=== PATIENT | female | born 1965 | race African-American/Black ===

== ENCOUNTER 2017-09-20 20:30 | Inpatient (IN) | payer OTHER ==
[~2017-09-20] VITALS: Ht 162.6 cm; Wt 122.5 kg
[~2017-09-20 20:30] MED LIST: ADVAIR 250/501 DISK IH; ALBUTEROL17 G1 IH; ARMOUR THYROID30 MG PO; ASPIR 8181 M1 PO; AVELOX400 MG PO; Aspirin E.C. PO; BENAZEPRIL HCL40 MG PO; BENTYL20 MG PO; CIPROFLOXACIN500 M1 PO; CLINDAMYCIN HC300 MG PO; CLONIDINE HCL0.1 MG PO; COMPAZINE10 MG PO; DIOVAN HCT 3201 EAC1 PO; DIOVAN40 MG PO; GABAPENTIN300 MG PO; GLIPIZIDE; GLIPIZIDE10 MG PO; GLIPIZIDE5 MG PO; GLUCOTROL XL5 MG PO; HYDROCHLOROTHIAZIDE PO; INDERIDE 40/1 TABLET PO; KYTRIL1 MG PO; LABETALOL HCL200 MG PO; LEVOTHROID25 MCG PO; LEVOXYL25 MCG PO; LOTENSIN20 MG PO; LOVASTATIN10 MG PO; LOVASTATIN40 MG PO; LYRICA50 MG PO; Levothroid,Synthroid PO; MEDROL; METOCLOPRAMIDE10 MG PO; Milk Of Magnesia,MOM PO; NAPROXEN500 MG PO; NORMODYNE,TRAN200 MG PO; Normodyne,Trandate PO; OXYCODONE HCL10 MG PO; PANTOPRAZOLE SO40 MG PO; PERCOCET 10/1 TABLET PO; PERCOCET 5/31 TABLET PO; PREDNISONE50 MG PO; PROTONIX40 MG PO; PROVENTIL HFA6.7 GM IH; Percocet 5/325,Endoc PO; Protonix PO; Proventil,Ventolin H IH; REGLAN10 M1 PO; REGLAN10 MG PO; ROBITUSSIN AC,T10 ML PO; Reglan PO; Symbicort 160-4.5 mc IH; TYLENOL/CODE1 TABLET PO; VENTOLIN HFA18 GM IH; ZANTAC300 MG PO; ZOFRAN ODT8 MG PO; ZOFRAN4 MG PO; predniSONE PO
[2017-09-20 21:10] LABS: CHLORIDE 83 mEq/L (99-109); HEMATOCRIT 34.7 % (36.0-46.0); MCH 32.5 PG (29.0-34.0); MCV 90.1 FL (83-99); MEAN PLAT.VOLUME 10.8 uM^3 (9.5-12.4); PLATELET COUNT 263 K/uL (156-360); POTASSIUM 3.4 mEq/L (3.7-5.4); RBC DIS.WIDTH-CV 13.4 % (11.8-14.6); RBC DIS.WIDTH-SD 44.2 % (39-53); RED BLOOD COUNT 3.85 M/uL (3.80-5.20); SODIUM 128 mEq/L (136-147); WHITE BLOOD COUNT 23.2 K/uL (4.1-10.2)
[2017-09-20 21:12] LABS: GLUCOSE 147 mg/dL (70-99)
[2017-09-20 21:13] LABS: ANION GAP 28 MEQ/L (2-14)
[2017-09-20 21:16] LABS: GFR ESTIMATE (CALCULATED) 5 mL/min/; UREA NITROGEN (BUN) 91 mg/dL (9-23)
[2017-09-20 21:16] LABS: POINT-OF-CARE METER ID UU13113747; POINT-OF-CARE USER ID 611181311
[2017-09-20 21:24] LABS: TROP-I INTERPRETATION NEGATIVE; TROPONIN-I 0.04 ng/mL (0.0-0.30)
[2017-09-20 21:44] LABS: MAGNESIUM 1.6 mg/dL (1.3-2.7)
[2017-09-20 21:51] LABS: LIPASE 20 U/L (1.0-51.0)
[2017-09-20 22:57] LABS: ERTH.SED.RATE 49 MM/HR (0-20)
[2017-09-20 23:25] LABS: ADD MIUA? YES; BILIRUBIN NEGATIVE; BLOOD MODERATE; COLOR AMBER ((YELLOW)); GLUCOSE (STRIP) NEGATIVE; KETONES 5; LEUKOCYTES LARGE; NITRITE NEGATIVE; PROTEIN (STRIP) 100; SPECIFIC GRAVITY 1.023 (1.000-1.030); UROBILINOGEN 0.2 MG/DL (0.2-1.0)
[2017-09-20 23:43] LABS: BACTERIA 3+ /HPF
[2017-09-20 23:44] LABS: EPITHELIAL CELLS 2+ /HPF; WHITE BLOOD CELLS TNTC /HPF (0-5)
[2017-09-20 23:47] LABS: UCUL ADDED? YES
[2017-09-20 23:48] LABS: CASTS NONE SEEN /LPF; CRYSTALS NONE SEEN; MUCUS NONE SEEN /LPF
[2017-09-21 01:11] LABS: C-REACTIVE PROTEIN > 240.0 MG/L (0-10)
[2017-09-21] MEDS ORDERED: MORPHINE SULFAT15 M1 PO (01:38)
[2017-09-21] MEDS ORDERED: GABAPENTIN300 MG PO (01:39)
[2017-09-21] MEDS ORDERED: PANTOPRAZOLE SO40 MG PO (01:40)
[2017-09-21] MEDS ORDERED: LOTENSIN10 MG PO (01:41)
[2017-09-21] MEDS ORDERED: AMMONIUM LACTA224 GM TP (01:42)
[2017-09-21] MEDS ORDERED: LEVOTHYROXINE25 MCG PO (01:42)
[2017-09-21 02:17] LABS: CHLORIDE 89 mEq/L (99-109); POTASSIUM 3.7 mEq/L (3.7-5.4); SODIUM 129 mEq/L (136-147)
[2017-09-21 02:19] LABS: GLUCOSE 168 mg/dL (70-99)
[2017-09-21 02:20] LABS: ANION GAP 20 MEQ/L (2-14)
[2017-09-21 02:23] LABS: GFR ESTIMATE (CALCULATED) 5 mL/min/
[2017-09-21 02:24] LABS: UREA NITROGEN (BUN) 92 mg/dL (9-23)
[2017-09-21 03:58] LABS: MAGNESIUM 1.4 mg/dL (1.3-2.7)
[2017-09-21 04:25] LABS: TROP-I INTERPRETATION NEGATIVE; TROPONIN-I 0.04 ng/mL (0.0-0.30)
[2017-09-21 04:39] LABS: ALKALINE PHOSPHATASE 115 IU/L (3-129); CREATINE KINASE 2154 IU/L (1-294); DIRECT BILIRUBIN 0.2 mg/dL (0.0-0.3); SAMPLE HEMOLYSIS CHECK 0; SAMPLE ICTERIC CHECK 0; SAMPLE LIPEMIA CHECK 1; TOTAL BILIRUBIN 0.6 MG/DL (0.0-1.0)
[2017-09-21 04:40] VITALS: BP 144/70
[2017-09-21 06:07] LABS: HEMATOCRIT 34.3 % (36.0-46.0); MCH 31.6 PG (29.0-34.0); MCHC 34.4 G/DL (30.0-36.0); MEAN PLAT.VOLUME 10.8 uM^3 (9.5-12.4); PLATELET COUNT 250 K/uL (156-360); RBC DIS.WIDTH-CV 13.5 % (11.8-14.6); RED BLOOD COUNT 3.73 M/uL (3.80-5.20); WHITE BLOOD COUNT 20.8 K/uL (4.1-10.2)
[2017-09-21 07:37] LABS: POINT-OF-CARE METER ID UU13113781
[2017-09-21 07:49] LABS: ANION GAP ND MEQ/L (2-14); CHLORIDE 88 MEQ/L (99-109); GLUCOSE 198 mg/dL (70-99); POTASSIUM 3.7 MEQ/L (3.7-5.4); SAMPLE HEMOLYSIS CHECK 0; SAMPLE ICTERIC CHECK 0; SAMPLE LIPEMIA CHECK 0; SODIUM 130 MEQ/L (136-147); TOTAL CK 2246 IU/L (1-294); UREA NITROGEN (BUN) 91 mg/dL (9-23)
[2017-09-21 07:56] LABS: CREATINE KINASE 2246 IU/L (1-294)
[2017-09-21 08:00] VITALS: BP 121/63
[2017-09-21 08:11] LABS: CK-MB 53.6 ng/mL (0.0-4.9)
[2017-09-21 09:08] LABS: GFR ESTIMATE (CALCULATED) 6 mL/min/
[2017-09-21 11:51] LABS: POINT-OF-CARE METER ID UU13113781
[2017-09-21 11:55] LABS: TROP-I INTERPRETATION NEGATIVE; TROPONIN-I 0.07 ng/mL (0.0-0.30)
[2017-09-21 12:00] VITALS: BP 132/63
[2017-09-21 16:49] VITALS: BP 140/66
[2017-09-21 17:03] LABS: POINT-OF-CARE METER ID UU13113781
[2017-09-21 19:27] VITALS: BP 126/71
[2017-09-21 21:10] LABS: POINT-OF-CARE METER ID UU13113698
[2017-09-22 04:01] VITALS: BP 174/81
[2017-09-22 04:50] LABS: HEMATOCRIT 33.3 % (36.0-46.0); MCH 31.4 PG (29.0-34.0); MCHC 34.5 G/DL (30.0-36.0); MEAN PLAT.VOLUME 10.1 uM^3 (9.5-12.4); PLATELET COUNT 293 K/uL (156-360); RBC DIS.WIDTH-CV 13.5 % (11.8-14.6); RBC DIS.WIDTH-SD 44.7 % (39-53); RED BLOOD COUNT 3.66 M/uL (3.80-5.20); WHITE BLOOD COUNT 17.7 K/uL (4.1-10.2)
[2017-09-22 04:58] LABS: POTASSIUM 3.4 mEq/L (3.7-5.4); SODIUM 135 mEq/L (136-147)
[2017-09-22 05:00] LABS: CHLORIDE 99 mEq/L (99-109); GLUCOSE 248 mg/dL (70-99)
[2017-09-22 05:01] LABS: ANION GAP 14 MEQ/L (2-14)
[2017-09-22 05:04] LABS: GFR ESTIMATE (CALCULATED) 29 mL/min/; UREA NITROGEN (BUN) 69 mg/dL (9-23)
[2017-09-22 08:19] LABS: POINT-OF-CARE METER ID UU14174216; POINT-OF-CARE USER ID NUTSLF44
[2017-09-22 08:39] VITALS: BP 188/86
[2017-09-22 11:56] LABS: POINT-OF-CARE METER ID UU14174216; POINT-OF-CARE USER ID NUTSLF44
[2017-09-22 12:45] VITALS: BP 177/79
[2017-09-22 16:32] LABS: POINT-OF-CARE METER ID UU13113781; POINT-OF-CARE USER ID ENVKC36
[2017-09-22 16:53] VITALS: BP 172/79
[2017-09-22 21:23] LABS: POINT-OF-CARE METER ID UU13113781
[2017-09-23] VITALS (9 sets, daily range): BP systolic 135–218; BP diastolic 84–109
[2017-09-23 06:00] LABS: ANION GAP 12 MEQ/L (2-14); GLUCOSE 245 mg/dL (70-99); SAMPLE HEMOLYSIS CHECK 1; SAMPLE ICTERIC CHECK 0; SAMPLE LIPEMIA CHECK 0; SODIUM 139 MEQ/L (136-147)
[2017-09-23 06:09] LABS: CHLORIDE 101 MEQ/L (99-109); GFR ESTIMATE (CALCULATED) > 59 mL/min/; UREA NITROGEN (BUN) 32 mg/dL (9-23)
[2017-09-23 07:53] LABS: POINT-OF-CARE METER ID UU13113781
[2017-09-23 10:22] LABS: CREATINE KINASE 540 IU/L (1-294)
[2017-09-23 12:12] LABS: POINT-OF-CARE METER ID UU13113698
[2017-09-23 17:19] LABS: POINT-OF-CARE METER ID UU13113781
[2017-09-23 20:50] LABS: POINT-OF-CARE METER ID UU13113781
[2017-09-24 00:01] VITALS: BP 161/82
[2017-09-24 05:06] VITALS: BP 142/76
[2017-09-24 05:30] LABS: HEMATOCRIT 35.2 % (36.0-46.0); MCH 31.3 PG (29.0-34.0); MCHC 34.9 G/DL (30.0-36.0); MCV 89.6 FL (83-99); MEAN PLAT.VOLUME 9.6 uM^3 (9.5-12.4); PLATELET COUNT 293 K/uL (156-360); RBC DIS.WIDTH-CV 13.3 % (11.8-14.6); RBC DIS.WIDTH-SD 43.9 % (39-53); RED BLOOD COUNT 3.93 M/uL (3.80-5.20); WHITE BLOOD COUNT 13.1 K/uL (4.1-10.2)
[2017-09-24 05:50] LABS: ANION GAP 11 MEQ/L (2-14); CHLORIDE 95 MEQ/L (99-109); GFR ESTIMATE (CALCULATED) > 59 mL/min/; GLUCOSE 322 mg/dL (70-99); POTASSIUM 3.6 MEQ/L (3.7-5.4); SAMPLE HEMOLYSIS CHECK 0; SAMPLE ICTERIC CHECK 0; SAMPLE LIPEMIA CHECK 0; SODIUM 138 MEQ/L (136-147); UREA NITROGEN (BUN) 21 mg/dL (9-23)
[2017-09-24 06:24] LABS: ABS NEUTROPHIL COUNT 11.4; ANISOCYTOSIS 1+; EOSINOPHIL ABS CT 0; HYPOCHROMASIA 1+; INSTRUMENT ABS NEUTROPHIL CT 10.3 K/uL; LYMPHOCYTES 7.8 % (15.0-45.0); MICROCYTOSIS 1+; MYELOCYTES 0.9 %; PLAT.SUFFICIENCY ADEQUATE
[2017-09-24 07:32] VITALS: BP 185/87
[2017-09-24 07:33] LABS: POINT-OF-CARE METER ID UU14314088
[2017-09-24 11:41] VITALS: BP 148/90
[2017-09-24 12:12] LABS: POINT-OF-CARE METER ID UU13113781; POINT-OF-CARE USER ID ENVKC36
[2017-09-24 15:12] VITALS: BP 176/82
[2017-09-24 16:49] LABS: POINT-OF-CARE METER ID UU13113781; POINT-OF-CARE USER ID ENVKC36
[2017-09-24 21:00] VITALS: BP 174/90
[2017-09-24 21:00] LABS: POINT-OF-CARE METER ID UU14314088
[2017-09-25 04:19] VITALS: BP 154/78
[2017-09-25 06:07] LABS: HEMATOCRIT 34.9 % (36.0-46.0); MCH 30.4 PG (29.0-34.0); MCHC 33.5 G/DL (30.0-36.0); MCV 90.6 FL (83-99); MEAN PLAT.VOLUME 9.4 uM^3 (9.5-12.4); PLATELET COUNT 253 K/uL (156-360); RBC DIS.WIDTH-CV 13.4 % (11.8-14.6); RED BLOOD COUNT 3.85 M/uL (3.80-5.20); WHITE BLOOD COUNT 17.9 K/uL (4.1-10.2)
[2017-09-25 06:44] LABS: ANION GAP 12 MEQ/L (2-14); CHLORIDE 95 MEQ/L (99-109); GFR ESTIMATE (CALCULATED) > 59 mL/min/; POTASSIUM 3.3 MEQ/L (3.7-5.4); SAMPLE HEMOLYSIS CHECK 0; SAMPLE ICTERIC CHECK 0; SAMPLE LIPEMIA CHECK 0; SODIUM 138 MEQ/L (136-147); UREA NITROGEN (BUN) 19 mg/dL (9-23)
[2017-09-25 06:54] VITALS: BP 151/88
[2017-09-25 06:58] LABS: ATYPICAL LYMPHOCYTE 0.9 %; BAND NEUTROPHILS 0.9 % (0-8.0); EOSINOPHIL ABS CT 0.2; EOSINOPHILS 0.9 % (0-5.0); LYMPHOCYTES 23.6 % (15.0-45.0); METAMYELOCYTES 0.9 %; PLAT.SUFFICIENCY ADEQUATE
[2017-09-25 06:59] LABS: GLUCOSE 142 mg/dL (70-99); SEG.NEUTROPHILS 66.4 % (46.0-76.0)
[2017-09-25 07:32] LABS: POINT-OF-CARE METER ID UU13113698
[2017-09-25 11:23] LABS: POINT-OF-CARE METER ID UU13113698
[2017-09-25 11:52] VITALS: BP 160/75
[2017-09-25] MEDS ORDERED: CIPRO500 MG PO (12:43)
[2017-09-25] MEDS ORDERED: PREDNISONE20 MG PO (12:45)
[2017-09-25] MEDS ORDERED: APRESOLINE50 MG PO (12:47)
[2017-09-25] MEDS ORDERED: AMLODIPINE BESY10 MG PO (12:47)
== END 2017-09-25 14:03 | disposition home health service (06) | DRG 872 ==
LOC: EME 20:30 → 4EAST 09-21 02:28 → EDOF 09-21 02:28 → ENRESERV 09-21 02:29 → 4EAST 09-21 04:26 → ENPENDDIS 09-25 → 4EAST 09-25 14:03
PROVIDERS: Emergency Medicine; Hospitalist; Internal Medicine; Internal Medicine Nephrology; Physician Assistant
DX: A41.9 Sepsis, unspecified organism (principal); R65.20 Severe sepsis without septic shock; N17.9 Acute kidney failure, unspecified; N39.0 Urinary tract infection, site not specified; B96.1 Klebsiella pneumoniae [K. pneumoniae] as the cause of diseases classified elsewhere; M62.82 Rhabdomyolysis; E87.2 Acidosis; E87.6 Hypokalemia; E87.1 Hypo-osmolality and hyponatremia; E86.0 Dehydration; J44.1 Chronic obstructive pulmonary disease with (acute) exacerbation; E11.43 Type 2 diabetes mellitus with diabetic autonomic (poly)neuropathy; K31.84 Gastroparesis; E03.9 Hypothyroidism, unspecified; I10 Essential (primary) hypertension; G89.29 Other chronic pain; M47.892 Other spondylosis, cervical region; M54.9 Dorsalgia, unspecified; K21.9 Gastro-esophageal reflux disease without esophagitis; E78.5 Hyperlipidemia, unspecified; E66.9 Obesity, unspecified; M25.572 Pain in left ankle and joints of left foot; F17.210 Nicotine dependence, cigarettes, uncomplicated; Z68.42 Body mass index [BMI] 45.0-49.9, adult; Z86.73 Personal history of transient ischemic attack (TIA), and cerebral infarction without residual deficits; Z88.0 Allergy status to penicillin; Z79.891 Long term (current) use of opiate analgesic; Z79.84 Long term (current) use of oral hypoglycemic drugs
CPT/HCPCS: 36600; 71010; 71020; 71250; 72141; 73630; 74176; 80048; 80048 91; 80069; 80076; 81003; 82010; 82550; 82550 91; 82553; 82803; 82948; 83605; 83690; 83735; 83930; 83935; 84133; 84300; 84443; 84484; 85025; 85027; 85651; 86140; 87040; 87077; 87086; 87186; 89190; 93005; 94640; 94640 76; 94799; 97530 GO; 97530 GP; 99202; 99281; 99285; C9113; J0360; J0692; J0696; J1644; J1815; J1885; J2543; J2765; J2920; J2930; J3370; J7030; J7050; J7120; J7512